=== PATIENT | male | born 1955 | race Caucasian/White ===

== ENCOUNTER 2021-03-23 08:00 | Outpatient (CLI) | payer MEDICARE ==
[2021-03-23] MEDS ORDERED: AMLO2.5T5 PO (11:26)
[2021-03-23] MEDS ORDERED: ATOR-2 PO (11:26)
[2021-03-23] MEDS ORDERED: CLOP75TA52 PO (11:26)
[2021-03-23] MEDS ORDERED: LATA2.5D4 EACHEYE (11:26)
[2021-03-23] MEDS ORDERED: CHOL10003 PO (11:26)
[2021-03-23] MEDS ORDERED: GLAT40SY INJ (11:26)
[2021-03-23] MEDS ORDERED: ASPI81TA45 PO (11:26)
[2021-03-23] MEDS ORDERED: CARV6.2512 PO (11:26)
[2021-03-23] MEDS ORDERED: GABA300C PO (11:26)
[2021-03-23 11:57] LABS: BASOPHILS % (AUTO) 1 % (0-1); EOSINOPHILS % (AUTO) 1 % (1-7); LYMPHOCYTES % (AUTO) 20 % (22-44); MEAN CORPUSCULAR HEMOGLOBIN 35.3 pg (27.5-34.5); MEAN CORPUSCULAR HGB CONC 34.7 g/dL (33.2-36.2); MEAN PLATELET VOLUME 8.9 fL (7.4-10.4); MONOCYTES % (AUTO) 8 % (2-9); NEUTROPHILS % (AUTO) 70 % (42-75); PLATELET COUNT 195 x10^3/uL (130-400); RED BLOOD COUNT 4.73 x10^6/uL (4.38-5.82); RED CELL DISTRIBUTION WIDTH 13.3 % (9.4-14.8)
[2021-03-23 12:07] LABS: ALBUMIN 3.5 g/dL (3.4-5.0); ANION GAP 9 mmol/L (5-15); CALCIUM 8.9 mg/dL (8.5-10.1); CHLORIDE 109 mmol/L (98-107)
[2021-03-23 12:10] LABS: ALANINE AMINOTRANSFERASE 31 U/L (12-78); ALKALINE PHOSPHATASE 71 U/L (45-117); BILIRUBIN,TOTAL 0.5 mg/dL (0.2-1.0); CREATININE 0.77 mg/dL (0.7-1.3)
== END 2021-03-23 23:59 | disposition home or self-care (01) ==
LOC: STAR 08:00 → EDSTATUS 03-26 16:30
PROVIDERS: ATTEND Orthopaedic Surgery Adult Reconstructive Orthopaedic Surgery
DX: Z01.818 Encounter for other preprocedural examination (principal); M16.11 Unilateral primary osteoarthritis, right hip; M25.551 Pain in right hip; Z79.899 Other long term (current) drug therapy; Z79.82 Long term (current) use of aspirin
CPT/HCPCS: 36415; 80053; 85025; 87081; 93005